=== PATIENT | female | born 1995 | race Caucasian/White ===

== ENCOUNTER 2021-02-06 23:50 | Emergency (ER) | payer BC ==
[~2021-02-06] VITALS: Ht 157.5 cm; Wt 103.4 kg
[2021-02-07 00:05] VITALS: BP 130/74
--- NOTE | 2021-02-07 00:05 | NUR ---
to bed ambulatory
--- NOTE | 2021-02-07 00:12 | NUR ---
patient c/o right middle finger pain. finger is swollen, red, and has a white substance beneath the skin. patient also has a left pinky finger pain. patient complains of of sensitivity and discomfort but denies pain. patient fiddles with cuticles on fingers constantly. AAOx4. VSS. pmh: Heart murmur nka
--- NOTE | 2021-02-07 01:45 | NUR ---
I&D Procedure done by Dr. Nice. Moderate amt of bleeding noted. Wound packed with . DSD applied. Pt procedure. Wound care discussed w/ patient.
[2021-02-07] MEDS ORDERED: LIDOCAINE 2% 1000 MG/50 ML VIAL INJ ONE (02:15)
[2021-02-07] MEDS ORDERED: LIDOCAINE MPF 1% 10 MG/ML VIAL INJ ONE (02:20)
[2021-02-07] MEDS ORDERED: BACO TP (03:18)
[2021-02-07] MEDS ORDERED: AMOX-1000 PO (03:18)
[2021-02-07 03:36] VITALS: BP 133/83
--- NOTE | 2021-02-07 03:36 | NUR ---
Patient discharged with v/s stable. Written and verbal after care instructions given and explained. Patient alert, oriented and verbalized understanding of instructions. Ambulatory with steady gait. All questions addressed prior to discharge. ID band removed. Patient advised to follow up with PMD. Rx of Augmentin 875-125 and bacitracin oint given. Patient educated on indication of medication including possible reaction and side effects. Opportunity to ask questions provided and answered.
== END 2021-02-07 03:36 | disposition home or self-care (01) ==
LOC: MED 23:50
DX: L03.011 Cellulitis of right finger (principal)
CPT/HCPCS: 10060; 99282; J2001